=== PATIENT | female | born 1980 | race Hispanic/Latino ===

== ENCOUNTER 2020-12-12 00:52 | Inpatient (IN) | payer SELFPAY ==
[~2020-12-12] VITALS: Ht 152.4 cm; Wt 88.4 kg
[2020-12-12] MEDS ORDERED: MORPHINE SULFATE 4 MG/1ML SYG ONE (01:48)
[2020-12-12] MEDS ORDERED: ONDANSETRON HCL 4 MG/2 ML VIAL ONE (01:48)
[2020-12-12 01:51] LABS: BILIRUBIN,URINE Large (NEGATIVE); COLOR,URINE Dark Yellow (YELLOW); GLUCOSE, URINE (UA) Negative (NEGATIVE); KETONES,URINE Negative (NEGATIVE); LEUKOCYTE ESTERASE ,URINE Moderate (NEGATIVE); NITRATE,URINE Negative (NEGATIVE); OCCULT BLOOD,URINE Negative (NEGATIVE); PH,URINE 5.5 (5.0-8.0); PROTEIN,URINE POS 1+ mg/dL (NEGATIVE)
[2020-12-12 01:52] LABS: APPEARANCE,URINE CLOUDY (CLEAR)
[2020-12-12 01:56] LABS: RBC,URINE None Seen /HPF (0-1)
[2020-12-12 01:57] LABS: BACTERIA,URINE Few /HPF (None Seen); SQUAMOUS EPITHELIAL CELL,UR Moderate /HPF (0-2)
[2020-12-12 02:05] LABS: BASOPHILS % (AUTO) 0.7 % (0.0-5.0); EOSINOPHILS % (AUTO) 1.4 % (0.0-8.0); HEMATOCRIT 39.3 % (36-48); LYMPHOCYTES % (AUTO) 28.2 % (21.0-51.0); MEAN CORPUSCULAR HEMOGLOBIN 27.8 pg (27.0-33.0); MEAN CORPUSCULAR HGB CONC 33.3 g/dL (32.0-36.0); MEAN CORPUSCULAR VOLUME 83.4 fL (79-99); MONOCYTES % (AUTO) 6.8 % (3.0-13.0); NEUTROPHILS % (AUTO) 62.2 % (40.0-77.0); PLATELET COUNT (AUTO) 340 K/uL (130-400); RED BLOOD CELL COUNT(AUTO) 4.71 MIL/uL (4.00-5.50); RED CELL DISTRIBUTION WIDTH 14.5 % (11.0-15.5); WHITE BLOOD COUNT (AUTO) 9.5 K/uL (4.8-10.8)
[2020-12-12 02:13] LABS: CREATININE 0.7 mg/dL (0.5-1.5); POTASSIUM 3.5 mmol/L (3.5-5.1)
[2020-12-12 02:17] LABS: INR 1.11 (0.85-1.15)
[2020-12-12 02:18] LABS: PARTIAL THROMBOPLASTIN TIME 25.1 SEC (26.3-35.5)
[2020-12-12 02:22] LABS: ALBUMIN 3.7 g/dL (3.5-5.0); BILIRUBIN,DIRECT 2.9 mg/dL (0.0-0.3); BILIRUBIN,TOTAL 3.9 mg/dL (0.2-1.0)
[2020-12-12] MEDS ORDERED: ONDANSETRON HCL 4 MG/2 ML VIAL IV PRN (04:30)
[2020-12-12] MEDS ORDERED: ACETAMINOPHEN 325 MG TAB PO PRN ×2 (04:30)
[2020-12-12] MEDS: SODIUM CHLORIDE 0.9% 1000ML 1,000 ML IV SCH ×2 (04:30→17:00)
[2020-12-12] MEDS ORDERED: NITROGLYCERIN 0.4 MG SL TAB SL PRN (04:30)
[2020-12-12] MEDS ORDERED: SODIUM CHLORIDE 0.9% 1000ML 1,000 ML IV SCH (04:30)
[2020-12-12] MEDS: CEFTRIAXONE SODIUM 1 GM IVP SCH (04:45)
[2020-12-12 04:53] LABS: CHOLESTEROL 224 mg/dL (<200); HDL CHOLESTEROL 56 mg/dL (35-85); LDL DIRECT 132 mg/dL (0-99); TRIGLYCERIDES 104 mg/dL (30-200)
[2020-12-12] MEDS ORDERED: CEFTRIAXONE SODIUM 1 GM ONE (05:14)
[2020-12-12] MEDS ORDERED: SODIUM CHLORIDE 0.9% 1000ML 1,000 ML IV ONE ×2 (05:14→07:21)
[2020-12-12] MEDS ORDERED: MORPHINE SULFATE 2 MG/ML 1ML SYG IVP PRN (05:30)
[2020-12-12] MEDS ORDERED: MORPHINE SULFATE 2 MG/ML 1ML SYG ONE (08:33)
[2020-12-12] MEDS: FAMOTIDINE/PF 20 MG/2 ML VIAL IV SCH ×2 (09:00→20:40)
[2020-12-12] MEDS ORDERED: GADOTERATE MEGLUMINE 10 MMOL/20 ML VIAL IV ONE (10:21)
[2020-12-12] MEDS ORDERED: ACETAMINOPHEN ELIXIR 650 MG/20.3 ML UDCUP ONE (13:39)
[2020-12-12 14:45] VITALS: BP 126/70
[2020-12-12 16:00] VITALS: BP 130/68
[2020-12-12] MEDS ORDERED: DICY10CA13 PO (19:03)
[2020-12-12] MEDS ORDERED: OMEP20TA25 PO (19:03)
[2020-12-12 20:04] VITALS: BP 130/72
[2020-12-12 23:45] VITALS: BP 146/79
[2020-12-13] MEDS: SODIUM CHLORIDE 0.9% 1000ML 1,000 ML IV SCH ×2 (00:10→18:48)
[2020-12-13 04:01] VITALS: BP 164/73
[2020-12-13] MEDS: CEFTRIAXONE SODIUM 1 GM IVP SCH (04:02)
[2020-12-13 04:04] LABS: HEMATOCRIT 39.7 % (36-48); MEAN CORPUSCULAR HEMOGLOBIN 26.6 pg (27.0-33.0); MEAN CORPUSCULAR HGB CONC 31.7 g/dL (32.0-36.0); MEAN CORPUSCULAR VOLUME 83.9 fL (79-99); PLATELET COUNT (AUTO) 332 K/uL (130-400); RED BLOOD CELL COUNT(AUTO) 4.73 MIL/uL (4.00-5.50); RED CELL DISTRIBUTION WIDTH 14.6 % (11.0-15.5); WHITE BLOOD COUNT (AUTO) 8.3 K/uL (4.8-10.8)
[2020-12-13 04:28] LABS: ALBUMIN 3.3 g/dL (3.5-5.0); BILIRUBIN,TOTAL 1.6 mg/dL (0.2-1.0); CREATININE 0.6 mg/dL (0.5-1.5); POTASSIUM 3.7 mmol/L (3.5-5.1); TOTAL PROTEIN, SERUM 7.3 g/dL (6.0-8.3)
[2020-12-13 06:09] LABS: BAND NEUTROPHILS % (MANUAL) 1 % (0-2); BASOPHILS % (MANUAL) 2 % (0-2); EOSINOPHILS % (MANUAL) 9 % (1-6); LYMPHOCYTES % (MANUAL) 36 % (22-44); MAN.DIFF COMMENT-IMPRESSION MANUAL DIFFERENTIAL; MONOCYTES % (MANUAL) 10 % (2-9); PLATELET MORPHOLOGY COMMENT ADEQUATE; REACTIVE LYMPHOCYTES 6 % (0-0); SEGMENTED NEUTROPHILS % 36 % (40-70)
[2020-12-13 06:42] VITALS: BP 138/79
[2020-12-13 08:05] VITALS: BP 132/67
[2020-12-13 08:13] LABS: HEPATITIS A ANTIBODY IGM Negative (Negative); HEPATITIS B CORE IGM Negative (Negative); HEPATITIS Bs ANTIGEN SCREEN P Negative (Negative)
[2020-12-13] MEDS: FAMOTIDINE/PF 20 MG/2 ML VIAL IV SCH ×2 (09:41→20:51)
[2020-12-13 19:42] VITALS: BP 125/67
[2020-12-13 23:03] VITALS: BP 122/59
[2020-12-14] VITALS (21 sets, daily range): BP systolic 129–165; BP diastolic 61–88
[2020-12-14] MEDS: SODIUM CHLORIDE 0.9% 1000ML 1,000 ML IV SCH ×3 (01:13→23:55)
[2020-12-14] MEDS ORDERED: SODIUM CHLORIDE 0.9% 10 ML VIAL ONE (04:39)
[2020-12-14] MEDS: CEFTRIAXONE SODIUM 1 GM IVP SCH (04:51)
[2020-12-14 06:02] LABS: BASOPHILS % (AUTO) 0.9 % (0.0-5.0); HEMATOCRIT 36.8 % (36-48); LYMPHOCYTES % (AUTO) 41.7 % (21.0-51.0); MEAN CORPUSCULAR HGB CONC 32.1 g/dL (32.0-36.0); MEAN CORPUSCULAR VOLUME 84.2 fL (79-99); MONOCYTES % (AUTO) 9.3 % (3.0-13.0); NEUTROPHILS % (AUTO) 44.2 % (40.0-77.0); PLATELET COUNT (AUTO) 313 K/uL (130-400); RED BLOOD CELL COUNT(AUTO) 4.37 MIL/uL (4.00-5.50); RED CELL DISTRIBUTION WIDTH 14.7 % (11.0-15.5); WHITE BLOOD COUNT (AUTO) 7.8 K/uL (4.8-10.8)
[2020-12-14 06:16] LABS: CREATININE 0.6 mg/dL (0.5-1.5)
[2020-12-14 07:35] LABS: BILIRUBIN,DIRECT 0.4 mg/dL (0.0-0.3); BILIRUBIN,TOTAL 0.9 mg/dL (0.2-1.0); TOTAL PROTEIN, SERUM 6.9 g/dL (6.0-8.3)
[2020-12-14] MEDS: FAMOTIDINE/PF 20 MG/2 ML VIAL IV SCH ×2 (08:50→20:48)
[2020-12-14] MEDS ORDERED: LIDOCAINE HCL-MPF 1% 5ML AMP IJ ONE (14:16)
[2020-12-14] MEDS ORDERED: PROPOFOL 10 MG/ML 20ML VIAL IV ONE (14:16)
[2020-12-14] MEDS ORDERED: MIDAZOLAM HCL 1 MG/ML 2ML VIAL ONE (14:16)
[2020-12-14] MEDS ORDERED: ROCURONIUM 10MG/1ML SYR 10 MG/ML ML ONE (14:17)
[2020-12-14] MEDS ORDERED: FENTANYL CITRATE PF 50 MCG/1 ML 2ML VIAL ONE (14:18)
[2020-12-14] MEDS ORDERED: GLYCOPYRROLATE 1 MG/5 ML SYRINGE ONE (15:03)
[2020-12-14] MEDS ORDERED: NEOSTIGMINE 5MG/5ML SYR IV ONE (15:03)
[2020-12-14] MEDS ORDERED: BUPIVACAINE/PF 0.5% 30ML VIAL INJ ONE (15:05)
[2020-12-14] MEDS ORDERED: MEPERIDINE-PF 25 MG/ML SYG ONE ×3 (15:08→15:37)
[2020-12-14] MEDS ORDERED: ONDANSETRON HCL 4 MG/2 ML VIAL ONE (15:10)
[2020-12-15 00:05] VITALS: BP 138/68
[2020-12-15] MEDS: ACETAMINOPHEN-CODEINE 300/30MG TAB PO PRN ×3 (00:17→13:24)
[2020-12-15 04:20] VITALS: BP 135/65
[2020-12-15] MEDS ORDERED: SODIUM CHLORIDE 0.9% 10 ML VIAL ONE (05:03)
[2020-12-15] MEDS: CEFTRIAXONE SODIUM 1 GM IVP SCH (05:15)
[2020-12-15 06:43] LABS: BASOPHILS % (AUTO) 0.5 % (0.0-5.0); EOSINOPHILS % (AUTO) 0.5 % (0.0-8.0); LYMPHOCYTES % (AUTO) 24.3 % (21.0-51.0); MEAN CORPUSCULAR HEMOGLOBIN 26.6 pg (27.0-33.0); MEAN CORPUSCULAR HGB CONC 31.8 g/dL (32.0-36.0); MEAN CORPUSCULAR VOLUME 83.7 fL (79-99); NEUTROPHILS % (AUTO) 66.2 % (40.0-77.0); PLATELET COUNT (AUTO) 326 K/uL (130-400); RED BLOOD CELL COUNT(AUTO) 4.66 MIL/uL (4.00-5.50); RED CELL DISTRIBUTION WIDTH 14.6 % (11.0-15.5); WHITE BLOOD COUNT (AUTO) 11.5 K/uL (4.8-10.8)
[2020-12-15 06:52] LABS: ALBUMIN 3.3 g/dL (3.5-5.0); CREATININE 0.6 mg/dL (0.5-1.5); POTASSIUM 3.6 mmol/L (3.5-5.1); TOTAL PROTEIN, SERUM 7.6 g/dL (6.0-8.3)
[2020-12-15] MEDS: FAMOTIDINE/PF 20 MG/2 ML VIAL IV SCH (08:34)
[2020-12-15 08:35] VITALS: BP 133/50
[2020-12-15] MEDS: SODIUM CHLORIDE 0.9% 1000ML 1,000 ML IV SCH (09:53)
[2020-12-15 11:35] VITALS: BP 139/83
[2020-12-15] MEDS ORDERED: CEPH500C2 PO (11:58)
== END 2020-12-15 14:45 | disposition home or self-care (01) | DRG 418 ==
LOC: EDH 00:52 → EDHIP 00:53 → 3DH 14:42 → WSH 12-13 06:34
PROVIDERS: ADMIT Internal Medicine; ATTEND Internal Medicine
PROC: 0FT44ZZ Resection of Gallbladder, Percutaneous Endoscopic Approach (ICD-10-PCS; principal; 2020-12-14 14:15)
DX: K80.01 Calculus of gallbladder with acute cholecystitis with obstruction (principal); K82.1 Hydrops of gallbladder; N39.0 Urinary tract infection, site not specified; K76.0 Fatty (change of) liver, not elsewhere classified; R16.0 Hepatomegaly, not elsewhere classified; R79.89 Other specified abnormal findings of blood chemistry; Z82.49 Family history of ischemic heart disease and other diseases of the circulatory system; Z90.49 Acquired absence of other specified parts of digestive tract
CPT/HCPCS: 36415; 74183; 76705; 80048; 80053; 80061; 80074; 80076; 81001; 81025; 82150; 83605; 83690; 84484; 85025; 85610; 85730; 87040; 87088; 87426; 87635; 93005; G0378; J0696; J2175; J2250; J2270; J2405; J2704; J2710; J3010; J3490; J7030; J7120